=== PATIENT | female | born 1970 | race Caucasian/White ===

== ENCOUNTER → 2019-04-24 07:45 | Outpatient (CLI) | payer BC, SELFPAY ==
[2019-04-05 11:31] VITALS: BMI 32.4
--- NOTE | 2019-04-24 07:47 | ECHOD_ITS ---
Reason For Study: ARRHYTHMIA Procedure This was a 2D Doppler, Color Flow transthoracic echocardiogram. Exam performed in department. Left Ventricle Normal LV size. Left ventricular systolic function is normal. Normal diastology for age. No regional wall motion abnormalities noted. Right Ventricle Normal RV size. Normal systolic function. Atria The left atrium is mildly enlarged. Normal right atrium. Mitral Valve Normal mitral valve. Mild (1+) eccentric mitral valve insufficiency. Tricuspid Valve Normal tricuspid valve. Mild tricuspid valve insufficiency. Pulmonary artery systolic pressure is 32 mmHg. Great Vessels Normal aortic root. The pulmonary artery is normal size. Inferior vena cava collapse with respiration. Pericardium/Pleural No pericardial effusion. MMode/2D Measurements & Calculations LVIDd: 5.0 cm IVSd: 1.0 cm Ao root diam: 3.5 cm LVIDs: 3.6 cm LVPWd: 1.00 cm RVDd: 3.1 cm FS: 29.2 % LAV(MOD-bp): 65.5 ml LA dimension(2D): 4.6 cm LA A4 area: 20.6 cm2 LAV(MOD-bp) Indexed: 33.1 ml/m2 LAV(MOD-sp2): 65.6 ml LAV(MOD-sp4): 63.6 ml RA A4 area: 16.3 cm2 Time Measurements MV dec time: 0.26 sec Doppler Measurements & Calculations MV E max finesse: 98.5 cm/sec Lat Peak E' Finesse: 13.8 cm/sec Med Peak E' Finesse: 8.4 cm/sec MV A max finesse: 104.4 cm/sec E/E' lat: 7.1 E/E' med: 11.7 MV E/A: 0.94 Ao V2 max: 186.8 cm/sec LV V1 max: 100.0 cm/sec PA V2 max: 119.6 cm/sec Ao max P.1 mmHg LV V1 max P.1 mmHg TR max finesse: 270.8 cm/sec TR max P.4 mmHg Interpretation Summary Normal LV size. Left ventricular systolic function is normal. Normal diastology for age. The left atrium is mildly enlarged. Mild tricuspid valve insufficiency. Structurally normal valves. Ordering Physician: Dallas Stephens Referring Physician: ALINE DONOVAN Performed By: Cynthia Gallardo, JYOTHI, RVT
== END ==
PROVIDERS: Family Provider Family Medicine; PCP Family Medicine; Referring Provider Internal Medicine Cardiovascular Disease; Visit Provider Internal Medicine Cardiovascular Disease
DX: I10 Essential (primary) hypertension (principal); I49.3 Ventricular premature depolarization
CPT/HCPCS: 93306

== ENCOUNTER → 2019-05-15 08:17 | Outpatient (CLI) | payer BC, SELFPAY ==
[2019-04-05 11:31] VITALS: BMI 32.4
[2019-05-15 10:04] LABS: Anion Gap 6 (5-15); BUN 17 mg/dL (7-18); BUN/Creat Ratio 20.7 RATIO (10-20); Calcium,Total 8.4 mg/dL (8.5-10.1); Chloride 106 mmol/L (98-107); Creatinine, Serum 0.82 mg/dL (0.55-1.02); EST Glomerular Filtration Rate 78 mL/min (>60); Est Glom Filt Rate - Afr Amer 95 mL/min (>60); Glucose 83 mg/dL (74-106); Potassium 3.7 mmol/L (3.5-5.1); Sodium Level 138 mmol/L (136-145)
== END ==
PROVIDERS: Family Provider Family Medicine; PCP Family Medicine; Referring Provider Physician Assistant Medical; Visit Provider Physician Assistant Medical
DX: I10 Essential (primary) hypertension (principal); R00.2 Palpitations; I49.3 Ventricular premature depolarization; I47.2 Ventricular tachycardia
CPT/HCPCS: 36415; 80048

== ENCOUNTER → 2019-06-27 | Outpatient (CLI) | payer BC, SELFPAY ==
[2019-04-05 11:31] VITALS: BMI 32.4
--- NOTE | 2019-06-26 13:45 | EMB_PTH ---
PATIENT: JARVIS VELA LOC: [facility] U#:[id number] AGE/SX: 48/F ROOM: RE06/27/[address]: Dr. Skyler Turner MD : 1970 BED: DIS: 06/27/2019 SPEC #: [id number] RECD: 06/26/19 17:20 STATUS: AILIN REAditi #: [id number] SANNA: 06/26/19 13:[address]: Skyler Turner DEPT: SURGICAL PATHOLOGY RECD BY: Dutch Barba ENTERED: 06/27/19 11:12 SP TYPE: ENDOM BX/C KATHERIN DR: Dr. 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 AM:efren 06/28/19 MICROSCOPIC DESCRIPTION Slides are reviewed. GROSS DESCRIPTION Received in fixative is one container labeled with the patient's name and designated EM biopsy. The specimen consists of multiple fragments of hemorrhagic soft tissue mixed with mucoid tissue that in aggregate measure 3 x 2.5 x 0.3 cm. The specimen is totally submitted in one cassette. / SJ:efren 06/27/19 TC:5 CPT: 17777
== END | disposition home or self-care (01) ==
LOC: LABSPEC 11:00
PROVIDERS: PCP Family Medicine; Referring Provider Obstetrics & Gynecology; Visit Provider Obstetrics & Gynecology
DX: N92.0 Excessive and frequent menstruation with regular cycle (principal)
CPT/HCPCS: 88305

== ENCOUNTER 2019-07-07 12:43 | Day surgery (SDC) | payer BC, SELFPAY ==
[2019-04-05 11:31] VITALS: BMI 32.4
[2019-07-06 12:49] LABS: Hematocrit 44.6 % (37-47); Hemoglobin 14.9 g/dL (12.0-15.0); Mean Corp Hgb Conc 33.4 g/dL (32-36); Mean Corpuscular Hgb 30.4 pg (27.0-32.0); Mean Platelet Vol. 9.1 fl (6.2-12.0); Platelet Count 272 K/mm3 (150-450); RBC Distribution Width CV 13.5 % (11.6-14.6); RBC Distribution Width SD 45.3 fl (35.1-43.9); White Blood Count 6.5 K/mm3 (4.4-11.0)
[2019-07-06 13:35] LABS: Prothrombin Time (Protime)PT. 13.4 SECONDS (11.7-14.9)
[2019-07-06 13:36] LABS: Partial Thromboplast Time 24.9 Seconds (24.1-36.2)
[2019-07-07] VITALS (8 sets, daily range): BP systolic 120–152; BP diastolic 75–94; PULSE 71–91; RESP 16–18; TEMP 36.7–37.6; O2SAT 98–100; BMI 33.3
--- NOTE | 2019-07-07 12:24 | PCM.HP.BLA ---
History and Physical Date of Admission: 07/07/19 Surgical History and Physical Lizy Patrick, a 48 year old female 2 0 0 0 2, presents for HTA, Hysteroscopy and D and C on July 07, 2019\ at 2:30. -- Menorrhagia -- Heavy and irregular periods for about a year, she started Sprintec in January 2019 and had extreme bleeding. Along with that she was dx with an irregular heart beat and hypertension. She had 8 days of no bleeding in February. The rest of the time was bright red to brown spotting. She also had 10 days of no bleeding in March. Pt was then put on a progesterone only OCP on 04-24-19 and has had pink spotting since. Bleeding is heavier when she is physically active. She has a new partner and would like to enjoy life without bleeding everyday. EMBx OK and u/s without submucous fibroids. MEDICATIONS HISTORY: Patient is also takin. hydrochlorothiazide 25 mg tablet, daily 2. losartan 100 mg tablet, daily 3. norethindrone (contraceptive) 0.35 mg tablet, daily ALLERGIES: No Known Drug Allergies Infections - Chicken pox Illnesses - hypertension and Irregular Heart Rate Accidents - None Hospitalizations - see surgery Review of Systems: GENERAL - Denies fever, or chills SKIN - Denies skin changes EYES - Denies visual changes EARS - Denies difficulty hearing NOSE - Denies nasal congestion or bleeding MOUTH - Denies sore throat or difficulty swallowing NECK - Denies pain or swelling RESPIRATORY - Denies shortness of breath or wheezing CARDIOVASCULAR - Denies palpitations or chest pain GASTROINTESTINAL - Denies nausea, vomiting, diarrhea, constipation GENITOURINARY - Denies dysuria, frequency of urination, incontinence of urine MUSCULOSKELETAL - Denies joint or muscle pain NEUROLOGICAL - Denies localized numbness or weakness PSYCHIATRIC - Denies depression or anxiety ENDOCRINE - Denies heat or cold intolerance, weight loss or gain HEMATO-IMMUNOLOGIC - Denies excessive bleeding with cuts SOCIAL HISTORY: Alcohol Use - drinks occasionally Smoking - denies smoking Diet - balanced Diet Lifestyle - Exercise - active Seat Belt Use - always Employer - [employer]) Job Description - Director [employer] Illicit Drug Use - denies use of street drugs Sexual Activity - active new partner Children Name(s) - 2 teenagers Control - Prior Tubal FAMILY HISTORY: nc MENSTRUAL HISTORY: LMP Known?- Irregular cycles Amount/Duration - excess amount, Regularity - Irregular, Frequency - variable days, LMP - 05/22/19 PAST PREGNANCIES: Total Pregnancies - 2; Full Term Pregnancies - 2; Premature - 0; Abortions, Induced - 0; Abortions, Spontaneous - 0; Ectopics - 0; Multiple Births - 0; Living Children - 2 SURGICAL HISTORY: 1. Csection 2002 2. Csection 2004 PHYSICAL EXAM BP- 144/94 Sitting, Right arm, regular cuff Weight- 208.97429 lbs Height- 66 inch BMI:33.64 CONSTITUTIONAL - NAD, well nourished, and well developed SKIN - No rash, lesions, or ulcers HEENT - Normocephalic, PERRLA, EOMI NECK - No nodes, no nuchal rigidity and thyroid normal size and texture LYMPH NODES - Palpation of lymph nodes in neck and groins within normal limits LUNGS - CTA x2 without wheezes, crackles or rales CARDIAC - Regular rate and rhythm without rubs, murmurs, or gallops BREAST - No dominant masses, no tenderness, no axillary adenopathy, no nipple discharge, no skin changes ABDOMEN - Without hepatosplenomegaly, distention, masses, rebound, or guarding; normal bowel sounds; no hernias EXTREMITIES - No edema or calf tenderness NEUROLOGICAL - Cranial nerves II-XII grossly intact PSYCHIATRIC - A and O to time, place, person, mood and affect ASSESSMENT/PLAN: 1. Excessive Bleeding In The Premenopausal Period Discussed options for treatment and plan Dx H/S, D and C and HTA. Discussed RBAs and all questions answered.
[2019-07-07] MEDS: Lactated Ringers 1,000 ML 100 ML IV ×2 (13:20→15:45)
--- NOTE | 2019-07-07 14:30 | UTC_PTH ---
PATIENT: JARVIS VELA LOC: [facility] [place] U#:[id number] AGE/SX: 48/F ROOM: RE07/07/[address]: Dr. Skyler Turner MD : 1970 BED: DIS: 07/07/2019 SPEC #: [id number] RECD: 07/10/19 10:55 STATUS: AILIN REAditi #: [id number] SANNA: 07/07/19 14:[address]: Skyler Turner DEPT: SURGICAL PATHOLOGY RECD BY: Dutch Barba ENTERED: 07/10/19 11:09 SP TYPE: LYLE PANDEY DR: Dr. Jaylen Woodard MD Tissues: Uterine cervix, NOS Procedures: Surgery Specimen Level IV HEADER OPERATION: Hysteroscopy, D & C, hydroablation PRE-OP DIAGNOSIS: Excessive bleeding in premenopausal period TISSUE SUBMITTED: Uterine curettings MICROSCOPIC DIAGNOSIS Uterine curettings: Consistent with exogenous hormone effects. SJ:efren 07/11/19 COMMENT Please make reference to previous specimen ([id number]) endometrium, biopsy with diagnosis of benign stromal hyperplasia suggestive of exogenous hormone effects. MICROSCOPIC DESCRIPTION Slides are reviewed. GROSS DESCRIPTION Received in fixative is one container labeled with the patient's name and designated uterine curettings. The specimen consists of multiple irregular fragments of light to dark christianson soft tissue that in aggregate measure 7 x 6 x 0.2 cm. The specimen is totally submitted in three cassettes. / AM:efren 07/10/19 TC:5 CPT: 52852
--- NOTE | 2019-07-07 15:31 | PCM.OPRPT ---
Report of Operation Date of Procedure: 07/07/19 Pre-Operative Diagnosis: Menorrhagia Post-Operative Diagnosis: Menorrhagia Surgery/Procedure Performed:: Diagnostic Hysteroscopy, Dilation and Curettage, Hydrothermal Ablation Description of Surgical Findings:: 8 cm endometrial cavity with multiple endometrial polyps present versus plush endometrium. Cervix which protrudes to within 6 to 7 cm of the vaginal opening which would make vaginal hysterectomy difficult without robotic assistance. Type of Anesthesia:: General - LMA Anesthesiologist: Fariba Tapia Specimen's removed: Endometrial curettings Estimated Blood Loss (mL): Minimal Fluids Replaced: Crystalloid Description of Procedure: Surgeon: Skyler Turner MD, FACOG Indication: This is a 48 year old patient who has been having problems with extremely heavy menses. Conservative measures have not been helpful. Endometrial sampling was benign and pelvic ultrasound showed that ablation may be helpful. Pt has been counseled regarding the risks, benefits and alternatives of this procedure and all questions answered. She understands that only about half of patients will have amenorrhea after this procedure. Procedure: Patient taken to the operating room where after induction of general anesthesia the patient was prepped and draped in the usual sterile fashion. Bladder was drained of urine with a catheter. Anterior cervix grasped and cervix was dilated to about 17 D[place]hi size. Hysteroscopic hydrothermal ablation (HTA) unit was place in the cervix and the above findings were noted. HTA unit was removed and the uterus was gently curetted removing all contents. An HTA ablation cycle was then carried out at about 90 degrees Centigrade for 10 minutes with virtually no fluid loss during the procedure although it was necessary to place an Allis on the posterior aspect of the cervix to prevent leaking. After an appropriate cool down the HTA unit was removed with minimal bleeding noted. The patient tolerated the procedure well and was taken to the recovery room in satisfactory condition. Sponge, instruments and needle counts were all correct. There were no apparent complications of the surgery. Cefotan 2 gms IV was given prior to the procedure. Estimated Blood Loss: Minimal Specimen to Pathology: Endometrial Curettings
--- NOTE | 2019-07-07 15:36 | PCM.DC.D&C ---
Discharge Diet: No Restrictions Discharge Activity: Return to Normal Activity, May Shower, May Take a Tub Bath May resume sexual activity in: 4 weeks Call your doctor if you observe: Fever of 101 or Higher, Inability to urinate, Inability to have a bowel movement, Using more than one pad per hour Additional Instructions: Nothing in the vagina including tampons until discharge stops in about 3 to 4 weeks. Allergies/Adverse Reactions: Allergies amoxicillin trihydrate [From Augmentin] Allergy (Verified 07/07/19 13:01) Itching potassium clavulanate [From Augmentin] Allergy (Verified 07/07/19 13:01) Itching Medications to take at Discharge losartan 100 mg tablet 100 mg PO DAILY #90 tab 04/24/19 hydrochlorothiazide 25 mg tablet 25 mg PO DAILY #30 tab 05/18/19 Multivitamin [Daily Multiple Vitamin] 1 ea PO DAILY 06/30/19 Hydrocodone/Acetaminophen [[place] 5-325 Tablet] 1 ea PO 4X/DAY PRN PRN 7 Days #7 tab 07/07/19 The following prescriptions were given: Hydrocodone/Acetaminophen [[place] 5-325 Tablet] 1 ea PO 4X/DAY PRN PRN 7 Days #7 tab PRN Reason: Pain Score 6-10/10 Transmission Status: Received by [facility]/pharmacy #[id number] Primary Care Physician: Jaylen Woodard MD [Primary Care Provider] - Test Results: Test results from this visit will be discussed in further detail at your follow-up appointment, if applicable. Please Follow Up With: Skyler Turner MD When: 2 to 3 weeks
[2019-07-07] MEDS: HYDROcodone Bitartrate/Apap 5/325 Tablet PO (17:07)
== END 2019-07-07 18:23 | disposition home or self-care (01) ==
LOC: SDC 12:45 → AC 12:46
PROVIDERS: PCP Family Medicine; Referring Provider Obstetrics & Gynecology; Visit Provider Obstetrics & Gynecology
PROC: 0U5B8ZZ Destruction of Endometrium, Via Natural or Artificial Opening Endoscopic (ICD-10-PCS; CPT 58563; principal; 2019-07-07 14:15)
DX: N92.0 Excessive and frequent menstruation with regular cycle (principal); I10 Essential (primary) hypertension; Z79.899 Other long term (current) drug therapy
CPT/HCPCS: 58558; 36415; 85027; 85610; 85730; 86850; 86900; 86901; 88305; J7120; J2405

== ENCOUNTER → 2020-01-17 09:46 | Outpatient (CLI) | payer BC, SELFPAY ==
[2019-11-10 13:00] VITALS: BMI 29.7
[2020-01-17 16:23] LABS: Estradiol 59.6 pg/mL
[2020-01-17 17:05] LABS: Progesterone Level < 0.21 ng/mL (See Comment)
[2020-01-19 13:03] LABS: DHEA Sulfate 43.4 ug/dL (41.2-243.7)
== END ==
PROVIDERS: PCP Family Medicine; Visit Provider Obstetrics & Gynecology
DX: N95.1 Menopausal and female climacteric states (principal); N92.1 Excessive and frequent menstruation with irregular cycle
CPT/HCPCS: 36415; 82533; 82627; 82670; 84144; 84403; 82626

== ENCOUNTER → 2020-02-19 | Outpatient (CLI) | payer BC, SELFPAY ==
[2019-11-10 13:00] VITALS: BMI 29.7
--- NOTE | 2020-02-19 07:06 | BI_ITS ---
MAMMOGRAPHY - BILATERAL SCREENING REASON FOR EXAM: Female, 49 years old. Routine annual screening examination. PERTINENT HISTORY: Non-contributory. TECHNIQUE: Digital bilateral breast anjali (3D mammographic acquisition) in the CC and MLO projections. 2-D mediolateral oblique (MLO) and craniocaudad (CC) views of both breasts were obtained. CAD: Full Field Digital Mammography with Computer Added Detection was performed. COMPARISON: Comparison is made with prior occipital examination dated 01/24/2019 and 11/19/2015. FINDINGS: Breast Composition: The breasts are heterogeneously dense, which may obscure small masses. There are no dominant masses or suspicious calcifications. Benign-appearing left axillary lymph nodes No other significant abnormalities are identified. There has been no significant change since the prior study. BI/SCREEN MAMM (CAD) W/ANJALI BILAT IMPRESSION: Stable bilateral screening mammogram. Yearly follow-up mammogram recommended. (A) ASSESSMENT CATEGORY: BIRADS Category 2: Benign. A letter regarding these results will be sent to the patient by the facility within 30 days. Approximately 10% of breast cancers are not detected by mammography. A normal mammogram should not delay biopsy of a clinically suspicious abnormality. [id number] Electronically Signed: Michael Burnham, at 8:04 EDT , Service support ,
== END | disposition home or self-care (01) ==
LOC: OPBI 07:04
PROVIDERS: PCP Family Medicine; Referring Provider Obstetrics & Gynecology; Visit Provider Obstetrics & Gynecology
DX: Z12.31 Encounter for screening mammogram for malignant neoplasm of breast (principal)
CPT/HCPCS: 77063; 77067

== ENCOUNTER → 2021-04-01 11:23 | Outpatient (CLI) | payer BC, SELFPAY ==
[2021-04-01 12:01] LABS: Hematocrit 44.7 % (37-47); Hemoglobin 15.1 g/dL (12.0-15.0); Mean Corp Hgb Conc 33.8 g/dL (32-36); Mean Corpuscular Hgb 30.4 pg (27.0-32.0); Mean Corpuscular Volume 89.9 fL (81-99); Mean Platelet Vol. 9.2 fl (6.2-12.0); Platelet Count 269 K/mm3 (150-450); RBC Distribution Width CV 12.9 % (11.6-14.6); RBC Distribution Width SD 42.7 fl (35.1-43.9); Red Blood Count 4.97 M/mm3 (4.2-5.4)
[2021-04-01 12:14] LABS: Hemoglobin A1c 5.2 % (3.8-5.6)
[2021-04-01 13:03] LABS: ALB/GLOB Ratio 0.8 RATIO (0.9-2.4); AST(SGOT) 18 U/L (15-37); Alanine Aminotransfer ALT/SGPT 25 U/L (13-56); Albumin, Serum 3.3 g/dL (3.2-5.0); Alkaline Phosphatase 89 U/L (45-117); Anion Gap 6 (5-15); BUN 13 mg/dL (7-18); BUN/Creat Ratio 16.7 RATIO (10-20); Calcium,Total 9.1 mg/dL (8.5-10.1); Chloride 106 mmol/L (98-107); Creatinine, Serum 0.78 mg/dL (0.55-1.02); EST Glomerular Filtration Rate 83 mL/min (>60); Est Glom Filt Rate - Afr Amer 100 mL/min (>60); Estradiol 23.6 pg/mL; Follicle Stimulating Hormone 78.2 mIU/mL; Free T3 2.8 pg/mL (2.18-3.98); Globulin 4.1 g/dL (2.2-4.2); Glucose 130 mg/dL (74-106); Potassium 3.5 mmol/L (3.5-5.1); Prolactin 10.9 ng/mL; Protein, Total 7.4 g/dL (6.4-8.2); Sodium Level 139 mmol/L (136-145); T4 Free Direct 1.04 ng/dL (0.76-1.46); Thyroid Stim Hormone (TSH) 0.55 uIU/mL (0.358-3.74)
[2021-04-01 13:29] LABS: HIV - WCH Non-Reactive (Nonreactive); Hepatitis B Surface Antigen Non-Reactive (Nonreactive); Hepatitis C Antibody Non-Reactive (Nonreactive); Insulin 38.8 mU/L (2.6-37.6); Syphilis Antibodies Non-reactive; T3 Total - Triiodothyronine 1.05 ng/mL (0.6-1.81); Vitamin D,25 Hydroxy 41.3 ng/mL
[2021-04-01 13:40] LABS: Progesterone Level < 0.21 ng/mL (See Comment)
[2021-04-02 05:07] LABS: DHEA Sulfate 43.5 ug/dL (41.2-243.7)
[2021-04-02 14:01] LABS: Sex Hormone-binding Globulin 70.9 nmol/L (17.3-125.0)
[2021-04-02 22:07] LABS: Chlamydia By Nucleic Acid AMP Negative (Negative)
[2021-04-03 16:59] LABS: Gonococcus By Nucleic Acid AMP Negative (Negative)
== END ==
PROVIDERS: PCP Family Medicine; Visit Provider Obstetrics & Gynecology
DX: N91.2 Amenorrhea, unspecified (principal); R73.09 Other abnormal glucose; Z11.3 Encounter for screening for infections with a predominantly sexual mode of transmission; Z13.29 Encounter for screening for other suspected endocrine disorder
CPT/HCPCS: 36415; 80053; 82306; 82533; 82627; 82670; 83001; 83036; 83525; 84144; 84146; 84270; 84403; 84439; 84443; 84480; 84481; 85027; 86703; 86780; 86803; 87340; 87491; 87591; 82626

== ENCOUNTER → 2021-04-03 09:24 | Outpatient (CLI) | payer BC, SELFPAY ==
[2021-04-03 11:13] LABS: Glucose 88 mg/dL (74-106)
[2021-04-03 11:22] LABS: Insulin 6.2 mU/L (2.6-37.6)
== END ==
PROVIDERS: PCP Family Medicine; Visit Provider Obstetrics & Gynecology
DX: R61 Generalized hyperhidrosis (principal)
CPT/HCPCS: 36415; 82947; 83525

== ENCOUNTER → 2021-04-03 14:41 | Outpatient (CLI) | payer BC, SELFPAY ==
--- NOTE | 2021-04-03 14:45 | BI_ITS ---
MAMMOGRAPHY - BILATERAL SCREENING REASON FOR EXAM: Female, 50 years old. Routine annual screening examination. PERTINENT HISTORY: Non-contributory. TECHNIQUE: Digital bilateral breast anjali (3D mammographic acquisition) in the CC and MLO projections. 2-D mediolateral oblique (MLO) and craniocaudad (CC) views of both breasts were obtained. CAD: Full Field Digital Mammography with Computer Added Detection was performed. COMPARISON: Comparison is made with prior study dated 02/19/2020. FINDINGS: Breast Composition: The breasts are heterogeneously dense, which may obscure small masses. There are no dominant masses or suspicious calcifications. Stable benign-appearing bilateral axillary lymph nodes. No other significant abnormalities are identified. There has been no significant change since the prior study. BI/SCRN MAMM (CAD)W/ANJALI BILAT IMPRESSION: Stable bilateral screening mammogram. Yearly follow-up mammogram recommended. (A) ASSESSMENT CATEGORY: BIRADS Category 1: Negative. A letter regarding these results will be sent to the patient by the facility within 30 days. Approximately 10% of breast cancers are not detected by mammography. A normal mammogram should not delay biopsy of a clinically suspicious abnormality. [id number] Electronically Signed: Michael Burnham MD at 15:43 EST , Service support ,
== END ==
PROVIDERS: PCP Family Medicine; Visit Provider Obstetrics & Gynecology
DX: Z12.31 Encounter for screening mammogram for malignant neoplasm of breast (principal)
CPT/HCPCS: 77063; 77067

== ENCOUNTER 2021-07-15 10:01 | Outpatient (CLI) | payer BC, SELFPAY ==
[2021-07-15 12:21] LABS: Estradiol 55.8 pg/mL
[2021-07-15 14:42] LABS: Progesterone Level < 0.21 ng/mL (See Comment)
== END 2021-07-15 23:59 | disposition home or self-care (01) ==
PROVIDERS: PCP Family Medicine; Visit Provider Obstetrics & Gynecology
DX: N95.1 Menopausal and female climacteric states (principal)
CPT/HCPCS: 36415; 82670; 84144; 84403

== ENCOUNTER 2022-03-18 08:41 | Outpatient (RCR) | payer BC, SELFPAY | END 2022-03-23 23:59 | LOC: NS 08:41 | PROVIDERS: PCP Family Medicine; Visit Provider Family Medicine | DX: Z71.3 Dietary counseling and surveillance (principal); E66.9 Obesity, unspecified | CPT/HCPCS: 97802 ==

== ENCOUNTER → 2022-04-01 | Outpatient (CLI) | payer BC, SELFPAY ==
[2022-04-09 14:50] LABS: HPV APTIMA, High Risk Negative (Negative)
== END | disposition home or self-care (01) ==
LOC: LABSPEC 13:37
PROVIDERS: PCP Family Medicine; Visit Provider Obstetrics & Gynecology
DX: Z12.4 Encounter for screening for malignant neoplasm of cervix (principal)
CPT/HCPCS: 87624; 88175; G0145

== ENCOUNTER → 2022-04-15 | Outpatient (CLI) | payer BC, SELFPAY ==
--- NOTE | 2022-04-15 07:25 | BI_ITS ---
MAMMOGRAPHY - BILATERAL SCREENING REASON FOR EXAM: Female, 51 years old. Routine annual screening examination. PERTINENT HISTORY: Non-contributory. TECHNIQUE: Digital bilateral breast anjali (3D mammographic acquisition) in the CC and MLO projections. 2-D mediolateral oblique (MLO) and craniocaudad (CC) views of both breasts were obtained. CAD: Full Field Digital Mammography with Computer Added Detection was performed. COMPARISON: Mammogram from 04/03/2021, 02/19/2020. FINDINGS: Breast Composition: The breasts are heterogeneously dense, which may obscure small masses. There are no dominant masses or suspicious calcifications. Stable benign-appearing bilateral axillary lymph nodes. No other significant abnormalities are identified. There has been no significant change since the prior study. BI/SCRN MAMM (CAD)W/ANJALI BILAT IMPRESSION: Stable bilateral screening mammogram. Yearly follow-up mammogram recommended. (A) ASSESSMENT CATEGORY: BIRADS Category 2: Benign. A letter regarding these results will be sent to the patient by the facility within 30 days. Approximately 10% of breast cancers are not detected by mammography. A normal mammogram should not delay biopsy of a clinically suspicious abnormality. Electronically Signed: Ryan Estevez, at 13:51 EST ,
== END | disposition home or self-care (01) ==
LOC: OPBI 07:23
PROVIDERS: PCP Family Medicine; Visit Provider Obstetrics & Gynecology
DX: Z12.31 Encounter for screening mammogram for malignant neoplasm of breast (principal)
CPT/HCPCS: 77063; 77067

== ENCOUNTER 2022-04-21 07:25 | Outpatient (RCR) | payer BC, SELFPAY | END 2022-04-22 23:59 | LOC: NS 07:25 | PROVIDERS: PCP Family Medicine; Visit Provider Family Medicine | DX: Z71.3 Dietary counseling and surveillance (principal); E66.9 Obesity, unspecified | CPT/HCPCS: 97803 ==

== ENCOUNTER 2022-05-20 07:17 | Outpatient (RCR) | payer BC, SELFPAY | END 2022-05-23 23:59 | LOC: NS 07:17 | PROVIDERS: PCP Family Medicine; Visit Provider Family Medicine | DX: Z71.3 Dietary counseling and surveillance (principal); E66.9 Obesity, unspecified; Z68.41 Body mass index [BMI] 40.0-44.9, adult | CPT/HCPCS: 97803 ==

== ENCOUNTER 2022-06-22 09:48 | Outpatient (RCR) | payer BC, SELFPAY | END 2022-06-23 23:59 | LOC: NS 09:48 | PROVIDERS: PCP Family Medicine; Visit Provider Family Medicine | DX: Z71.3 Dietary counseling and surveillance (principal); E66.9 Obesity, unspecified; Z68.41 Body mass index [BMI] 40.0-44.9, adult | CPT/HCPCS: 97803 ==

== ENCOUNTER 2022-07-16 07:26 | Outpatient (RCR) | payer BC, SELFPAY | END 2022-07-21 23:59 | LOC: NS 07:26 | PROVIDERS: PCP Family Medicine; Visit Provider Family Medicine | DX: Z71.3 Dietary counseling and surveillance (principal); E66.9 Obesity, unspecified; Z68.41 Body mass index [BMI] 40.0-44.9, adult | CPT/HCPCS: 97803 ==

== ENCOUNTER 2022-08-10 07:26 | Outpatient (RCR) | payer BC, SELFPAY | END 2022-08-21 23:59 | LOC: NS 07:26 | PROVIDERS: PCP Family Medicine; Visit Provider Family Medicine | DX: Z71.3 Dietary counseling and surveillance (principal); E66.9 Obesity, unspecified; Z68.41 Body mass index [BMI] 40.0-44.9, adult | CPT/HCPCS: 97803 ==

== ENCOUNTER → 2022-08-14 | Outpatient (CLI) | payer BC, SELFPAY ==
[2022-08-14 15:38] LABS: HIV - WCH Non-Reactive (Nonreactive); Syphilis Antibodies Non-reactive
[2022-08-16 09:07] LABS: HEPATITIS B SURFACE AG Negative (Negative); Hepatitis B Core Ab Total Negative (Negative)
[2022-08-16 09:10] LABS: Hep B Surface Antibodies Reactive (.)
== END | disposition home or self-care (01) ==
LOC: WOBLAB 13:15
PROVIDERS: PCP Family Medicine; Visit Provider Nurse Practitioner Women's Health
DX: Z11.3 Encounter for screening for infections with a predominantly sexual mode of transmission (principal)
CPT/HCPCS: 36415; 86703; 86704; 86705; 86706; 86707; 86780; 86803; 87340; 87350